=== PATIENT | male | born 2000 | race Hispanic/Latino ===

== ENCOUNTER 2022-05-27 15:32 | Emergency (ER) | payer BC, SELFPAY ==
--- NOTE | ~2022-05-27 | XR_ITS ---
EXAMINATION: XR abdomen obstructive series DATE: 05/27/2022 15:57 INDICATION: Abdominal pain and constipation TECHNIQUE: Upright and supine views of the abdomen were obtained. COMPARISON: None. FINDINGS: There is no free intraperitoneal gas. There are subtle fluid levels in nondilated loops of small bowel. A moderate volume of colonic stool is noted. The visualized lung bases are clear. The os seous structures are unremarkable. IMPRESSION: 1. Nonspecific abdominal radiographs. No free intraperitoneal gas. Reviewed, dictated and finalized at location B.
[2022-05-27 15:41] VITALS: BP 127/82; PULSE 68; RESP 16; TEMP 37.2; O2SAT 100
--- NOTE | 2022-05-27 15:51 | ED.ABDPAIN ---
HPI - Abdominal Pain General Chief Complaint: Abdominal Pain Stated Complaint: CONSTIPATION/PAIN/BLOATING Time Seen by Provider: 05/27/22 15:45 Source: patient Mode of arrival: ambulatory Limitations: no limitations History of Present Illness HPI narrative: Mr Ross is a 21 year old male patient presenting to the clinic today with c/o possible constipation, abdominal pain, and bloating x1 week. He reports that he has been diagnosed with IBS. He has seen Dr. Lara and he was given IB gaurd that seem to help. States he has seen Dr. Lara again for constipation and he was given prescription for Linzess 72 mg. He reports he has not had actual bowel movement in 1 week however he has passed some liquid stool. He denies having any passing of gas. States he feels bloated. No nausea or vomiting. Denies any blood in the stool when he was having diarrhea. He is concerned that he may be full of stool. Related Data Allergies Allergy/AdvReac Type Severity Reaction Status Date / Time Penicillins AdvReac Intermediate Rash Verified 05/27/22 16:02 Review of Systems Review of Systems: Pertinent positives per HPI. Patient denies any fever, chills, rash, headache, visual changes, dizziness, cough, runny nose, sore throat, shortness of breath, chest pain, palpitations, nausea, vomiting, or any urinary issues. 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 There is no relevant family history pertinent to the patient complaint. Exam Narrative: General: Well-developed, well nourished, in no apparent distress. Head: Normocephalic, atraumatic. Cardio: Regular rate and rhythm, s1 and s2 normal, no murmur appreciated. Resp: Clear to auscultation bilaterally, no rhonchi, rales, wheezing or rubs. Abdomen: Soft, pliable, bowel sounds present in all quadrants, mild generalized tender to palpation, no organomegly, no CVAT tenderness. Course Course Emergency Course: Portions of this record may have been created with voice recognition software. Level of Care: Express Care Visit Vital Signs Vital signs: Vital Signs Temperature 37.2 C 05/27/22 15:41 Pulse Rate 68 05/27/22 15:41 Respiratory Rate 16 05/27/22 15:41 Blood Pressure 127/82 05/27/22 15:41 Pulse Oximetry 100 05/27/22 15:41 Temperature 37.2 C 05/27/22 15:41 Pulse Rate 68 05/27/22 15:41 Respiratory Rate 16 05/27/22 15:41 Blood Pressure 127/82 05/27/22 15:41 Pulse Oximetry 100 05/27/22 15:41 Vital signs reviewed MDM - Abdominal Pain MDM Narrative Medical decision making narrative: At the time of visit patient is resting comfortably on the exam table. Obstructive series was completed and was negative for any sign of obstruction or impaction. He does have a moderate amount of stool in his colon. I suspect the patient has constipation and prescriptions were sent to his pharmacy. Supportive measures were discussed with the patient and he voiced understanding of discharge instructions and agrees to treatment plan. Differential Diagnosis Differential diagnosis: Likely abdominal pain, constipation, gastroenteritis and small bowel obstruction Imaging Data Radiologist's impression: ITS Impressions Abdomen X-Ray 05/27/22 15:58 IMPRESSION: 1. Nonspecific abdominal radiographs. No free intraperitoneal gas. Close Abdomen X-Ray (Signed) Willie Keita - 05/27/22 Launch?[facility] [address] [facility] [place], [place] [id number] XRay Report Signed Patient: Tyrel Ross
== END 2022-05-27 16:18 | disposition home or self-care (01) ==
PROVIDERS: Emergency Provider Nurse Practitioner Family; PCP Family Medicine
DX: K59.00 Constipation, unspecified (principal)
CPT/HCPCS: 74019; 99213; G0463

== ENCOUNTER 2022-06-14 14:00 | Outpatient (CLI) | payer BC, SELFPAY ==
[2022-06-14 14:29] LABS: Hematocrit 45.3 % (42.0-52.0); Hemoglobin 15.1 g/dL (14.0-18.0); Mean Corpuscular HGB Conc 33.3 g/dl (32-36); Mean Corpuscular Hemoglobin 31.1 pg (26-34); Mean Corpuscular Volume 93.2 fl (80-100); Mean Platelet Volume 9.2 fl (7.4-10.4); Platelet Count Result 265 k/mm3 (150-375); Red Blood Count 4.86 M/mm3 (4.6-6.20); Red Cell Distribution Width 11.8 % (11.5-14.5)
[2022-06-14 14:40] LABS: Alanine Aminotransferase 31 U/L (6-50); Albumin Level 4.8 g/dL (3.5-5.1); Alkaline Phosphatase 83 U/L (38-126); Anion Gap 15 mmol/L (8-16); Aspartate Amino Transferase 39 U/L (17-59); Bilirubin,Total 0.9 mg/dL (0.2-1.3); Blood Urea Nitrogen 14 mg/dL (9-20); CRP < 0.5 mg/dL (<1.0); Calcium 9.5 mg/dL (8.4-10.2); Carbon Dioxide 26 mmol/L (22-30); Chloride 102 mmol/L (98-107); Estimated Glomerular Filt Rate > 60; Glucose 77 mg/dL (65-110); Potassium 4.2 mmol/L (3.4-5.0); Sodium 143 mmol/L (137-145)
[2022-06-14 14:58] LABS: Erythrocyte Sedimentation Rate 1 mm/hr (0-20)
[2022-06-21 14:45] LABS: Gliadin AB, IgG <1.0 U/mL (<15.0); TTG IGA AB <1.0 U/mL (<15.0)
== END 2022-06-14 14:01 | disposition home or self-care (01) ==
PROVIDERS: PCP Family Medicine; Visit Provider Nurse Practitioner
DX: R14.0 Abdominal distension (gaseous) (principal); K58.1 Irritable bowel syndrome with constipation; K59.00 Constipation, unspecified
CPT/HCPCS: 36415; 80053; 83516; 84443; 85027; 85652; 86140

== ENCOUNTER 2022-11-19 11:33 | Emergency (ER) | payer BC, SELFPAY ==
[2022-11-19 11:43] VITALS: BP 144/81; PULSE 60; RESP 16; TEMP 36.7; O2SAT 100
--- NOTE | 2022-11-19 12:23 | ED.GENADULT ---
HPI - General Adult General Chief complaint: Abdominal Pain Stated complaint: loss of appetite, stomach pain Time Seen by Provider: 11/19/22 12:23 Source: patient, RN notes reviewed and old records reviewed Mode of arrival: ambulatory Limitations: no limitations History of Present Illness HPI narrative: 22 year old male who presents to [facility] care with complaints of loss of appetite,boating and belching today with inability to eat or drink much related to increased belching. Patient has seen GI doctors in [place] and in [place] with last visit with Susan Stevens [employer] with follow up visit scheduled for the of this month. Patient denies any acute pain to abdomen reports increased bloating sensation and is concerned for dehydration since he has not been able to eat or drink for 3 days. MD complaint: bloating, inability to eat, belching concern for dehydration Location: abdomen (umbilicus cramping,) Severity scale (1-10): 3 Treatments prior to arrival: none Related Data Allergies Allergy/AdvReac Type Severity Reaction Status Date / Time Penicillins AdvReac Intermediate Rash Verified 11/19/22 13:43 Review of Systems Review of Systems: CONSTITUTIONAL: Denies fever, chills, or sweats. EYES: Denies visual changes, redness, or discharge. ENT: Denies rhinorrhea, congestion, sore throat, or otalgia. CARDIOVASCULAR: Denies chest pain, palpitations, or edema. RESPIRATORY: Denies cough or dyspnea. GASTROINTESTINAL: Reports some crampy umbilical abdominal pain, nausea, no vomiting, positive for watery diarrhea no blood or bilious stools GENITOURINARY: Denies dysuria or hematuria. SKIN: Denies rash or itching. MUSCULOSKELETAL: Denies back pain, joint pain, or myalgia. NEUROLOGIC: Denies headache, numbness, or weakness. PSYCHIATRIC: Reports history of anxiety or depression. 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 There is no relevant family history pertinent to the presenting complaint Exam Narrative: GENERAL: Well-appearing, well-nourished, and in no acute distress. HEAD: Normocephalic, atraumatic. EYES: PERRLA and EOMI. ENT: Nares clear, no rhinorrhea or epistaxis. Mucous membranes moist.TM' normal with good light reflex, throat pink with no swelling or edema. NECK: Supple.no lymphadenopathy CHEST: Clear to auscultation. No respiratory distress.SAO2 100% on room air HEART: Regular rate and rhythm. No murmur heard. Normal peripheral pulses. ABDOMEN: Soft, tender midabdomen. belching, reports bloating with abdomen nondistended, normal active bowel sounds, reports feeling bloated, no McBurney point tenderness. EXTREMITIES: Normal range of motion. No edema. SKIN: Warm, dry, no rash. NEURO: No focal deficits. Alert and oriented x3. Course Course Emergency Course: Patient is aware of diagnosis, understands and agrees to treatment plan.? Anticipatory guidance given.? Patient agrees to follow-up as directed and is aware of reasons to seek care at the emergency department. Portions of this record may have been created with voice recognition software Level of Care: Express Care Visit Vital Signs Vital signs: Vital Signs Temperature 36.7 C 11/19/22 11:43 Pulse Rate 60 11/19/22 11:43 Respiratory Rate 16
== END 2022-11-19 12:48 | disposition short-term general hospital (02) ==
PROVIDERS: Emergency Provider Registered Nurse
DX: R10.9 Unspecified abdominal pain (principal)
CPT/HCPCS: 99212; G0463

== ENCOUNTER 2022-11-19 13:12 | Emergency (ER) | payer BC, SELFPAY ==
[2022-11-19 13:23] VITALS: BP 140/69; PULSE 62; RESP 18; TEMP 37.2; O2SAT 95
[2022-11-19] MEDS: LACTATED RINGERS 1,000 ML 999 ML IV CONT (13:43)
[2022-11-19] MEDS: FAMOTIDINE 20 MG/2 ML VIAL IV PUSH (13:43)
[2022-11-19] MEDS: ONDANSETRON INJ 4 MG/2 ML VIAL IV PUSH (13:43)
--- NOTE | 2022-11-19 14:04 | ED.GENADULT ---
HPI - General Adult General Chief complaint: Unspecified Stated complaint: unspecified Time Seen by Provider: 11/19/22 13:32 History of Present Illness HPI narrative: Patient is a 22 year old male here for evaluation of nausea, bloating, belching, and early satiety x 2 years. Patient states he has seen numerous GI doctors and his symptoms have been attributed to SIBO and IBS-C. He presents today due to concerns of dehydration- states he has not been eating or drinking x 3 days due to his symptoms. He has also had several episodes of loose, non-bloody, watery stool. Has been taking rifaximin for SIBO x 3 weeks without any improvement. Unsure if he has been tested for H. pylori. No fevers, abdominal pain/cramping, sick contacts. Related Data Allergies Allergy/AdvReac Type Severity Reaction Status Date / Time Penicillins AdvReac Intermediate Rash Verified 11/19/22 13:43 Review of Systems Review of Systems: Gen.: Denies fevers or chills Eyes: Denies eye pain or visual change ENT: Denies congestion Respiratory: Denies shortness of breath or cough CV: Denies chest pain or palpitations GI:reports bloating, cramping, nausea denies burning, urgency, frequency or hematuria Musculoskeletal: Denies back pain or muscle pain Neuro: Denies numbness, tingling, weakness or focal weakness Skin: Denies rash Except as documented, all other systems reviewed and negative PMFSH Past Medical History Medical History Belching Bloating Irritable bowel syndrome with diarrhea Irritable bowel syndrome with predominant constipation Social History Social History Smoking status: Never smoker Second hand tobacco smoke exposure: Yes (friends) Alcohol intake: never Substance use: former Substance use type: marijuana Living arrangements: with family Occupation/Education: occupation 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 Head: Normocephalic and atraumatic. EYES: PERRLA/EOMI, conjunctivae clear NOSE: No nasal drainage EARS: External ear normal in appearance THROAT: Oropharynx is clear. Mucous membranes are moist. NECK: Supple. No adenopathy, no masses. RESPIRATORY: Airway patent, respirations nonlabored. Clear to auscultation bilaterally, no rales, rhonchi, wheezing. CARDIOVASCULAR: Regular rate and rhythm without murmurs, rubs, or gallops. ABDOMINAL: Normoactive bowel sounds. Soft, nontender, nondistended. No rebound tenderness or guarding. MUSCULOSKELETAL: Extremities are warm and well-perfused. Moves all extremities well. No edema. NEURO: Normal speech. No focal neurologic deficits. SKIN: Skin is warm and dry. No rashes. PSYCHIATRIC: Normal affect/mood.. Course Vital Signs Vital signs: Vital Signs Temperature 99 F 11/19/22 13:23 Pulse Rate 62 11/19/22 13:23 Respiratory Rate 18 11/19/22 13:23 Blood Pressure 140/69 11/19/22 13:23 Pulse Oximetry 95 11/19/22 13:23 Oxygen Delivery Room Air 11/19/22 13:23 Temperature 99 F 11/19/22 13:23 Pulse Rate 62 11/19/22 16:09 Respiratory Rate 16 11/19/22 16:09 Blood Pressure 130/74 11/19/22 16:09 Pulse Oximetry 95 11/19/22 13:23 Oxygen Delivery Room Air 11/19/22 13:23 Medical Decision Making MDM Narrative Medical decision making narrative: 22-year-old male here for evaluation of abdominal bloating, belching, early satiety x3 days. Has had close follow-up with GI, has had neck negative EGDs, currently being treated for SIBO with antibiotics. He is nontoxic in appearance, has normal vital signs, normoactive bowel sounds, no abdominal tenderness or distention on exam. Patient was given fluids, antiemetics and Pepcid with improvement of his symptoms. No indication for intra-abdominal imaging at this time. Patient may have H.
[2022-11-19 14:17] LABS: Basophils Percent Auto 0.5 % (0.2-1.2); Eosinophils Percent Auto 0.2 % (0-4.4); Hematocrit 46.6 % (42.0-52.0); Hemoglobin 15.9 g/dL (14.0-18.0); Immature Granulocyte Absolute 0.02 K/mm3 (0.00-0.031); Immature Granulocyte Percent A 0.3 % (0-0.5); Lymphocytes Absolute Auto 0.99 K/mm3 (0.9-3.2); Lymphocytes Percent Auto 16.6 % (18.3-44.2); Mean Corpuscular HGB Conc 34.1 g/dl (32-36); Mean Corpuscular Hemoglobin 31.5 pg (26-34); Mean Corpuscular Volume 92.3 fl (80-100); Mean Platelet Volume 9.3 fl (7.4-10.4); Monocytes Absolute Auto 0.4 K/mm3 (0.1-0.6); Monocytes Percent Auto 7.2 % (2.6-8.5); Neutrophils Absolute Auto 4.5 K/mm3 (1.3-6.7); Neutrophils Percent Auto 75.2 % (45.5-73.1); Platelet Count Result 244 k/mm3 (150-375); Red Blood Count 5.05 M/mm3 (4.6-6.20); Red Cell Distribution Width 12.3 % (11.5-14.5)
[2022-11-19 14:18] LABS: Appearance Urine Clear (Clear); Bilirubin Urine Negative (Negative); Blood Urine Negative (Negative); Color Urine Yellow (Yellow); Glucose Urine UA Negative (Negative); Ketones Urine Negative (Negative); Leukocyte Esterase Ur Negative LEU/UL (Negative); Nitrate Urine Negative (Negative); Protein Urine Negative (Negative); Specific Grav Ur 1.019 (1.001-1.035)
[2022-11-19 14:21] LABS: Add Urine Microscopic? NO
[2022-11-19 14:44] LABS: Alanine Aminotransferase 36 U/L (6-50); Albumin Level 4.9 g/dL (3.5-5.1); Alkaline Phosphatase 125 U/L (38-126); Anion Gap 9 mmol/L (8-16); Aspartate Amino Transferase 37 U/L (17-59); Bilirubin,Total 1.3 mg/dL (0.2-1.3); Blood Urea Nitrogen 9 mg/dL (9-20); Calcium 9.3 mg/dL (8.4-10.2); Carbon Dioxide 27 mmol/L (22-30); Chloride 105 mmol/L (98-107); Estimated CRCL calculation 116 ml/min; Estimated Glomerular Filt Rate > 60; Glucose 97 mg/dL (65-110); Lipase 50 U/L (23-300); Magnesium 2.1 mg/dL (1.6-2.3); Potassium 3.8 mmol/L (3.4-5.0); Sodium 141 mmol/L (137-145)
[2022-11-19 16:09] VITALS: BP 130/74; PULSE 62; RESP 16
== END 2022-11-19 16:11 | disposition home or self-care (01) ==
PROVIDERS: Emergency Provider Physician Assistant
DX: K58.1 Irritable bowel syndrome with constipation (principal)
CPT/HCPCS: 36415; 80053; 81003; 83690; 83735; 85025; 96361; 96374; 96375; 99284; J2405; J7120

== ENCOUNTER 2022-11-30 12:36 | Outpatient (CLI) | payer BC, SELFPAY ==
[2022-12-03 23:49] LABS: H pylori, Urea Breath NOT DETECTED (NOT DETECTED)
== END 2022-11-30 12:37 | disposition home or self-care (01) ==
LOC: ANHLAB 12:37
PROVIDERS: PCP Family Medicine; Visit Provider Nurse Practitioner Family
DX: R14.2 Eructation (principal); R14.0 Abdominal distension (gaseous)
CPT/HCPCS: 83013

== ENCOUNTER 2022-12-01 06:51 | Outpatient (CLI) | payer BC, SELFPAY ==
--- NOTE | ~2022-12-01 | NM_ITS ---
EXAM: NM gastric emptying study DATE: 12/01/2022 11:43 INDICATION: Belching, bloating and early satiety TECHNIQUE: A gastric emptying study was performed using the methodology of Kinsey LEACH, et al. J Nucl Med 2007; 48:568-572. The patient was given a meal consisting of 2 scrambled eggs labeled with 1.0 m Ci Tc-99m sulfur colloid, 2 slices of toast, two packages of jam, and approximately 120 mL of water. Simultaneous anterior and posterior 1-min images of the abdomen were obtained with the patient supine at multiple time points over a total period of 4 hours. The geometric mean of anterior and posterior views was determined, and the percentage retention was calculated for each time point. COMPARISON: None. FINDINGS: Gastric retention of the radiotracer-labeled meal was 38%, 9%, and 2% at the 1-hour, 2-hour, and 4-ho ur time points, respectively. With this technique, apparent rapid gastric emptying is suggested by <3 0% gastric retention at 1 hour. Delayed gastric emptying is defined by gastric retention of >90% at 1 hour, >60% retention at 2 hours, or >10% retention at 4 hours. IMPRESSION: 1. Normal gastric emptying. Reviewed, dictated and finalized at location A. IMPRESSION: 1. Normal gastric emptying.
== END 2022-12-01 06:52 | disposition home or self-care (01) ==
PROVIDERS: PCP Family Medicine; Visit Provider Nurse Practitioner Family
DX: R14.0 Abdominal distension (gaseous) (principal); R14.2 Eructation
CPT/HCPCS: 78264; A9541

== ENCOUNTER 2022-12-16 00:41 | Day surgery (SDC) | payer BC, SELFPAY ==
[2022-12-06 11:47] VITALS: BMI 23.3
--- NOTE | 2022-12-15 19:55 | P.HP_ITS ---
History of Present Illness History of Present Illness Consent: Risks, benefits, and alternatives have been discussed and questions answered. Patient agrees to proceed with procedure. Chief complaint: belching,early satiety Narrative: Tyrel Ross is a 22 year old male seen in [place] ER on November 19 for complaints early satiety, bloating and belching. He also had diarrhea for 2 days with black watery stools. Diarrhea has since resolved and bowel habits back to baseline. He denies any fever or sick contacts.? States early satiety, belching, and bloating have been have been going on since September and is progressively getting worse.? he was discharged from the ER with possible H pylori infection and was prescribed omeprazole, Flagyl, and doxycycline. He denies and improvement with omeprazole. He also c/o erly satiety after a few bites, and severe bloating Review of Systems Review of Systems: All systems reviewed & are unremarkable except as noted in HPI and below PMFSH Past Medical History Medical History Belching Bloating Irritable bowel syndrome with diarrhea Irritable bowel syndrome with predominant constipation Social History Social History Smoking status: Never smoker Second hand tobacco smoke exposure: Yes (friends) Alcohol intake: current Alcohol use details: socially Substance use: current Substance use type: marijuana Living arrangements: with family Occupation/Education: occupation 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 Spiritual care concerns: No Meds Home Medications and Allergies Home Medications Medication Instructions Recorded Confirmed Type bismuth subsalicylate 262 mg 2 tablet PO QID 14 days #112 tabs 11/19/22 12/06/22 Rx chewable tablet (Bismuth) Allergies Allergy/AdvReac Type Severity Reaction Status Date / Time Penicillins AdvReac Intermediate Rash Verified 12/16/22 12:48 Exam Const: General: alert Orientation/consciousness: patient oriented x3 Resp: Auscultation: clear to auscultation bilaterally Cardio: Rhythm: regular rhythm GI: GI Palp: Yes Soft to palpation and No Tenderness to palpation present (GI) Neuro: General: patient oriented x3 Assessment and Plan Assessment and plan (1) Early satiety: Code(s): R68.81 - Early satiety Status: Acute Assessment and Plan: EGD with possible biopsy or dilatation or cautery.
[2022-12-16 12:50] VITALS: BP 131/70; PULSE 52; RESP 19; TEMP 36.6; O2SAT 100
--- NOTE | 2022-12-16 12:50 | P.PNAN_ITS ---
Anes - Initial Pre Proc Eval Procedure: Operation Date: 12/16/22 13:45 Proposed Procedures p Esophagogastroduodenoscopy - Con Palacios MD Date/Time: 12/16/22 12:50 Surgeon: Con Palacios MD Pre Op Diagnosis: belching,early satiety Patient Data Age: 22 Gender: M Height: 1.78 m Weight: 74 kg Allergies Allergy/AdvReac Type Severity Reaction Status Date / Time Penicillins AdvReac Intermediate Rash Verified 12/16/22 12:48 Home Medications Medication Instructions Recorded Confirmed Type bismuth subsalicylate 262 mg 2 tablet PO QID 14 days #112 tabs 11/19/22 12/06/22 Rx chewable tablet (Bismuth) Patient hx anesthesia problems: none Family hx anesthesia problems: none Results Review: All pre-operative results and documents have been reviewed as part of the pre-op erative evaluation. 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 Informed Consent: The patient's anesthetic plan and its attendant risks and benefits were discussed with the patient/family/POA. Questions were solicited and answers provided to the satisfaction of the patient/family/POA.
[2022-12-16] MEDS: LACTATED RINGERS 1,000 ML 150 ML IV CONT (13:01)
[2022-12-16 13:35] VITALS: BP 99/53; PULSE 58; RESP 18; O2SAT 99
[2022-12-16 13:45] VITALS: BP 110/55; PULSE 51; RESP 13; O2SAT 100
[2022-12-16 13:55] VITALS: BP 124/82; PULSE 56; RESP 22; O2SAT 100
== END 2022-12-16 14:14 | disposition home or self-care (01) ==
PROVIDERS: PCP Family Medicine; Visit Provider Internal Medicine Gastroenterology
PROC: 0DJ08ZZ Inspection of Upper Intestinal Tract, Via Natural or Artificial Opening Endoscopic (ICD-10-PCS; CPT 43235; principal; 2022-12-16 13:45)
DX: K21.9 Gastro-esophageal reflux disease without esophagitis (principal); K58.2 Mixed irritable bowel syndrome; F12.90 Cannabis use, unspecified, uncomplicated
CPT/HCPCS: 43235; J2704; J7120

== ENCOUNTER 2023-06-14 14:26 | Emergency (ER) | payer BC, SELFPAY ==
--- NOTE | 2023-06-14 14:32 | ED.URI ---
HPI - URI/Sore Throat General Chief Complaint: Upper Respiratory Infection Stated Complaint: SORE THROAT Time Seen by Provider: 06/14/23 14:32 Source: patient and RN notes reviewed History of Present Illness HPI Narrative: Patient is a 23-year-old male who presents to urgent care with complaints of a sore throat. Patient states that started yesterday. 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 Patient states he has been on Medrol Dosepak for the last few days due to an inflamed tooth. Patient denies any fever, nausea or vomiting. No other acute complaints. No acute distress noted. Patient aware of the plan of care. Some parts of this dictation were generated by voice recognition software and may contain typographical and/or grammatical inaccuracies. Related Data Home Medications Medication Instructions Recorded Confirmed No Home Medications 06/14/23 06/14/23 Allergies Allergy/AdvReac Type Severity Reaction Status Date / Time Penicillins AdvReac Intermediate Rash Verified 06/14/23 14:41 Review of Systems Review of Systems: CONSTITUTIONAL: Denies fever, chills, or sweats. EYES: Denies visual changes, redness, or discharge. ENT: Denies rhinorrhea, congestion, otalgia. Reports of sore throat CARDIOVASCULAR: Denies chest pain, palpitations, or edema. RESPIRATORY: Denies cough or dyspnea. GASTROINTESTINAL: Denies abdominal pain, nausea, vomiting, or diarrhea. GENITOURINARY: Denies dysuria or hematuria. SKIN: Denies rash or itching. MUSCULOSKELETAL: Denies back pain, joint pain, or myalgia. NEUROLOGIC: Denies headache, numbness, or weakness. All other systems reviewed are negative, except as documented in HPI. 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 There is no relevant family history pertinent to the patient complaint. Exam Narrative: GENERAL: This is a well-nourished, well-developed patient, in no apparent distress. HEAD: normocephalic, atraumatic. EYES: PERRL. Sclera clear/white. Vision is grossly intact. EARS: External ears normal, auditory canals clear and without drainage, TMs normal without perforation. Hearing grossly intact. NOSE: External nose normal with no obvious nasal discharge, nares without redness, no rhinorrhea. THROAT: Mucous membranes moist, to moderate erythema to posterior pharynx with moderate postnasal drainage NECK: Neck supple, non-tender without lymphadenopathy RESPIRATORY: Clear to auscultation. Breath sounds equal bilaterally. No wheezes, rales, or rhonchi. SKIN: warm, intact with no suspicious lesions or rash, good texture and turgor. NEURO: awake, alert, and oriented to person, place and time. There were no obvious focal neurologic abnormalities. EXTREMITIES: No clubbing, cyanosis, or edema. Course Course Level of Care: Express Care Visit Vital Signs Vital signs: Vital Signs Temperature 98.6 F 06/14/23 14:42 Pulse Rate 74 06/14/23 14:42 Respiratory Rate 16 06/14/23 14:42 Blood Pressure 128/62 06/14/23 14:42 Pulse Oximetry 99 06/14/23 14:42 Temperature 98.6 F 06/14/23 14:44 Pulse Rate 74 06/14/23 14:44 Respiratory Rate 16 06/14/23 14:44 Blood Pressure
[2023-06-14 14:42] VITALS: BP 128/62; PULSE 74; RESP 16; TEMP 37; O2SAT 99
[2023-06-14 14:44] VITALS: BP 128/62; PULSE 74; RESP 16; TEMP 37; O2SAT 99
== END 2023-06-14 14:51 | disposition home or self-care (01) ==
PROVIDERS: Emergency Provider Nurse Practitioner Family; PCP Family Medicine
DX: J02.9 Acute pharyngitis, unspecified (principal); F12.90 Cannabis use, unspecified, uncomplicated
CPT/HCPCS: 87081; 87880; 99213; G0463